=== PATIENT | male | born 1950 | race Caucasian/White ===

== ENCOUNTER 2019-07-11 20:05 | Observation (INO) ==
[2019-07-11] MEDS ORDERED: DILTIAZEM HCL 5 MG/ML VIAL IV ONE ×2 (20:14)
[2019-07-11] MEDS ORDERED: DILTIAZEM HCL 125 MG in DEXTROSE 5 % IN WATER 100 ML IV PRN ×2 (20:14)
[2019-07-11] MEDS ORDERED: NORMAL SALINE 1,000 ML IV ONE (20:21)
--- NOTE | 2019-07-11 20:26 | ERNOTE ---
Chest Pain/Cardiac HPI Chief Complaint: Chest Pain Time Seen by Provider: 07/11/19 20:13 Source: patient Exam Limitations: no limitations Allergies/Adverse Reactions: Allergies codeine Adverse Reaction (Verified 07/11/19 20:20) Home Medications: HOME MEDICATIONS Finasteride [Proscar] 5 mg PO DAILY 07/11/19 [Last Taken Unknown] Rosuvastatin Calcium 40 mg PO DAILY 07/11/19 [Last Taken Unknown] Tamsulosin HCl [Flomax] 0.4 mg PO HS 07/11/19 [Last Taken Unknown] metFORMIN HCL [Metformin HCl] 500 mg PO BID 07/11/19 [Last Taken Unknown] Allopurinol [Zyloprim] 300 mg PO DAILY 07/12/19 [Last Taken Unknown] Apixaban [Eliquis] 5 mg PO BID 07/12/19 [Last Taken Unknown] Fosinopril Sodium 20 mg PO DAILY 07/12/19 [Last Taken Unknown] Furosemide 20 mg PO DAILY 07/12/19 [Last Taken Unknown] Gabapentin [Neurontin] 100 mg PO TID 07/12/19 [Last Taken Unknown] Metoprolol Tartrate 50 mg PO BID 07/12/19 [Last Taken Unknown] Omeprazole 40 mg PO DAILY 07/12/19 [Last Taken Unknown] Potassium Chloride [Klor-Con M20] 20 meq PO DAILY 07/12/19 [Last Taken Unknown] Narrative: Pt presents with chest pain and palpitations. Had an episode earlier today that did not last but this episode lasted longer Timing: getting worse Severity/Quality: severe Location: central Review of Systems - Review of Systems Constitutional: Absent: recent illness, fever, chills Respiratory: Present: shortness of breath Cardiology: Present: chest pain. Absent: palpitations, syncope Gastrointestinal/Abdominal: Present: nausea. Absent: vomiting Genitourinary: Absent: dysuria Musculoskeletal: Absent: back pain, muscle pain Skin: Absent: rash Neurological: Absent: dizziness/light-headedness Endocrine: Absent: excessive sweating Medical History (Updated 07/12/19 @ 07:05 by Belkys Vee MD) Afib Bladder cancer Diabetes Enlarged prostate GERD (gastroesophageal reflux disease) HTN (hypertension) Surgical History: Surgical History (Updated 07/11/19 @ 20:22 by Massiel Ferguson) History of bladder surgery Hx of cholecystectomy Hx of hernia repair Family History: Family History (Updated 07/12/19 @ 00:40 by Anna Lopez RN) Sister Colon cancer Social History: (Last Reviewed 07/15/19 @ 02:43 by Santos Leggett DO) Social History: adopted: No fci: No Marital status: lives independently: Yes household members: spouse Tobacco: Smoking Status: Never smoker Alcohol: alcohol intake: never Substance Use: substance use type: does not use Physical Exam - Physical Exam General Appearance: Present: wd/wn, alert, mild distress Head Exam: Present: normal inspection, no evidence of injury Ears, Nose, Throat: Present: normal ENT inspection Neck: Present: normal inspection, nontender Respiratory: Present: no respiratory distress, no accessory muscle use, chest nontender, lungs clear Cardiovascular/Chest: Present: no murmur, tachycardia Gastrointestinal/Abdominal: Present: normal bowel sounds, nontender, nondistended, soft Back Exam: Present: normal inspection, normal range of motion Extremity Exam: Present: normal inspection, normal range of motion, no edema Neurological Exam: Present: alert, oriented, normal mood/affect, no motor/sensory deficits Skin Exam: Present: normal color, warm/dry Lymphatic Exam: Present: no adenopathy Progress - Results and Orders Patient's Lab Results:: I have reviewed the patient's lab results. Results and Orders: Laboratory Tests 07/11/19 07/11/19 07/11/19 20:26 20:26 20:26 WBC 9.2 Hgb 14.6 Hct 43.2 Plt Count 176 PT 11.0 H INR (Anticoag Therapy) 1.12 H PTT ([place]) 29.5 Sodium 138 Potassium 3.3 L Chloride 101 Carbon Dioxide 24.4 BUN 16 Creatinine 1.20 Random Glucose 288 H Calcium 9.3 Total Bilirubin 0.4 AST 29 ALT 20 Alkaline Phosphatase 54 Troponin I Less than 0.017 Total Protein 7.1 Albumin 4.1 Urine Color Urine Appearance Urine pH Ur Specific [place] Urine Protein Urine Glucose (UA) Urine Ketones Urine Blood Urine Nitrate Urine Bilirubin Prot Sulfosalicylic Acd Urine Urobilinogen Ur Leukocyte Esterase Urine RBC Urine WBC Ur Epithelial Cells Urine Bacteria Urine Culture Comments 07/11/19 22:41 WBC Hgb Hct Plt Count PT INR (Anticoag Therapy) PTT ([place]) Sodium Potassium Chloride Carbon Dioxide BUN Creatinine Random Glucose Calcium Total Bilirubin AST ALT Alkaline Phosphatase Troponin I Total Protein Albumin Urine Color Yellow Urine Appearance Clear Urine pH 6.5 Ur Specific [place] 1.020 Urine Protein 30 H Urine Glucose (UA) 500 H Urine Ketones 15 Urine Blood Negative Urine Nitrate Negative Urine Bilirubin Negative Prot Sulfosalicylic Acd Negative Urine Urobilinogen Normal Ur Leukocyte Esterase Negative Urine RBC None seen Urine WBC None seen Ur Epithelial Cells Trace Urine Bacteria Trace Urine Culture Comments No culture indicated - Vital Signs Patient's Vital Signs:: I have reviewed the patient's vital signs. - Progress/Reassessment Progress:: Improved Progress Note-Subjective: 07/11/19 20:20 Cardizem was ordered but HR slowed down to 89 spontaneously before medication could be given. 07/11/19 21:54 Patient had another episode of RVR which again stopped before any medication could be given. Patient was given 20 mg of Cardizem and started on a Cardizem drip at 5 mg/h and has maintained SR with PAC's around 80 bpm. 07/11/19 23:[address] Fountain she agrees with admission to the ICU with Cardizem drip and repeat troponins. Departure Clinical Impression: Atrial fibrillation with RVR - Departure Disposition: Still a patient Condition: Critical
[2019-07-11 20:30] LABS: Hematocrit 43.2 % (42.0-52.0); Hemoglobin 14.6 gm/dL (13.5-18.0); Mean Cell Volume 85.4 fl (78-100); Mean Corpuscular Hemoglobin 28.9 pg (27-31); Mean Corpuscular Hgb Conc 33.8 g/dl (32-36); Mean Platelet Volume 9.6 fl (8-11.3); Neutrophil # 4.2 K/mm3 (1.3-6.0); Platelet Count 176 K/mm3 (150-450); Red Blood Count 5.06 M/mm3 (4.7-6.0); Red Cell Distribution Width 13.2 % (11.5-14.0); White Blood Count 9.2 K/mm3 (4.0-10.5)
[2019-07-11 20:41] LABS: INR 1.12 INR (0.92-1.08); Partial Thrombolplastin Time 29.5 Seconds (24-32)
[2019-07-11 20:53] LABS: ALT 20 U/L (19-67); AST 29 U/L (0-48); Albumin * 4.1 gm/dl (3.4-5.0); Alkaline Phosphatase * 54 U/L (50-170); Anion Gap 15.9 mmol/L (6.8-13.8); BUN/Creatinine Ratio 13.3 (9.0-21.6); Bilirubin, Total 0.4 mg/dL (0.0-1.1); Blood Urea Nitrogen 16 mg/dL (6-23); Ca. Corrected For Albumin 8.9 mg/dL (8.4-10.2); Calcium * 9.3 mg/dL (7.9-10.9); Carbon Dioxide 24.4 mmol/L (24-32.6); Chloride 101 mmol/L (97-106); Glucose * 288 mg/dL (70-110); Potassium 3.3 mmol/L (3.4-4.6); Sodium 138 mmol/L (132-142); Total Protein 7.1 gm/dL (6.2-8.2); Troponin I Less than 0.017 ng/mL (0.00-0.10)
[2019-07-11 22:46] LABS: Urine Bilirubin Negative (NEGATIVE); Urine Blood Negative /ul (NEGATIVE); Urine Ketone 15 mg/dL (NEGATIVE); Urine Nitrite Negative (NEGATIVE); Urine Protein 30 mg/dL (NEGATIVE); Urine Urobilinogen Normal (NORMAL); Urine pH 6.5 pH (5.0-7.0)
[2019-07-11 22:57] LABS: Urine Appearance Clear (CLEAR); Urine Bacteria TRACE; Urine Color Yellow; Urine RBC None Seen /hpf (0-5); Urine WBC None Seen /hpf (0-5)
[2019-07-12] MEDS ORDERED: ASPIRIN 81 MG TAB.CHEW PO ONE ×2 (03:49→06:39)
[2019-07-12] MEDS ORDERED: ROSUVASTATIN CALCIUM 10 MG TABLET PO ONE (03:50)
[2019-07-12] MEDS ORDERED: MORPHINE SULFATE 4 MG/ML SYRG IV PRN (03:54)
[2019-07-12] MEDS ORDERED: ENOXAPARIN SODIUM 40 MG/0.4 ML SYRG SC ONE ×2 (03:55→06:00)
[2019-07-12] MEDS ORDERED: NITROGLYCERIN 0.4 MG/TAB BTL SL PRN (04:15)
--- NOTE | 2019-07-12 06:41 | HP ---
Chief Complaint - Chief Complaint Date of Service: 07/12/19 Time of Service: 05:00 Chief Complaint: chest pain History of Present Illness: 69-year-old male with past medical history of A. fib, hypertension, [id number] diabetes mellitus type 2, hyperlipidemia, gout, BPH, and past medical history of bladder cancer status post treatment, came to [facility] ER with complaints of intermittent chest pain radiating to back. Patient describes that he had 3 episodes of left-sided chest pain radiating to back that lasted for his 3 seconds and resolve spontaneously. Associated with dizziness and and feeling weak. Patient states after the third episode was concerned so they came to the ER for further evaluation. On arrival to the ER, patient via vital signs stable. Shortly after admission patient went to [place]. lawanda RVR. Labs and cardiac work-up completed. Opponents were less than 0.017. Labs were significant for hyperglycemia of 288, hypokalemia of 3.3, urine glucose of 500, and proteinuria of 30. Received Cardizem 30 mg IV push patient cardioverted however reverted back and RVR started on IV D drip and admitted into critical unit. Troponins were trended and at 3 AM next troponin was 0.983. EKG obtained no sick significant changes appreciated. Patient given aspirin 325 mg, Eliquis 5 mg, atorvastatin 80 mg. Morphine, nitro sublingual and oxygen ordered as needed. Patient was asymptomatic at 3 AM. Repeat troponin III hours later was significant for 1.960. EKG repeated, mild changes appreciated on EKG. EKG more consistent with an an STEMI. Consult Dr. Bone of [facility]. Discussed case with Dr. Merrill cardiology and accepted patient for transfer. Records were faxed to [facility] for further evaluation by the accepting hospitalist Dr. Head. Discussed case with hospitalist patient was accepted and transfer of patient was completed. Medical History (Updated 07/12/19 @ 07:05 by Belkys Vee MD) Afib Bladder cancer Diabetes Enlarged prostate GERD (gastroesophageal reflux disease) HTN (hypertension) Surgical History: Surgical History (Updated 07/11/19 @ 20:22 by Massiel Ferguson) History of bladder surgery Hx of cholecystectomy Hx of hernia repair Family History: Family History (Updated 07/12/19 @ 00:40 by nAna Lopez RN) Sister Colon cancer Social History: (Last Reviewed 07/15/19 @ 02:43 by Santos Leggett DO) Social History: adopted: No usp: No Marital status: lives independently: Yes household members: spouse Tobacco: Smoking Status: Never smoker Alcohol: alcohol intake: never Substance Use: substance use type: does not use Immunizations: IMMUNIZATION HX Immunizations Up to Date No Allergies/Adverse Reactions: Allergies Allergy/AdvReac Type Severity Reaction Status Date / Time codeine AdvReac Verified 07/11/19 20:20 Home Medications: HOME MEDICATIONS Finasteride [Proscar] 5 mg PO DAILY 07/11/19 [Last Taken Unknown] Rosuvastatin Calcium 40 mg PO DAILY 07/11/19 [Last Taken Unknown] Tamsulosin HCl [Flomax] 0.4 mg PO HS 07/11/19 [Last Taken Unknown] metFORMIN HCL [Metformin HCl] 500 mg PO BID 07/11/19 [Last Taken Unknown] Allopurinol [Zyloprim] 300 mg PO DAILY 07/12/19 [Last Taken Unknown] Apixaban [Eliquis] 5 mg PO BID 07/12/19 [Last Taken Unknown] Fosinopril Sodium 20 mg PO DAILY 07/12/19 [Last Taken Unknown] Furosemide 20 mg PO DAILY 07/12/19 [Last Taken Unknown] Gabapentin [Neurontin] 100 mg PO TID 07/12/19 [Last Taken Unknown] Metoprolol Tartrate 50 mg PO BID 07/12/19 [Last Taken Unknown] Omeprazole 40 mg PO DAILY 07/12/19 [Last Taken Unknown] Potassium Chloride [Klor-Con M20] 20 meq PO DAILY 07/12/19 [Last Taken Unknown] Exam - Exam Vital Signs: Vital Signs - Last Taken Temp 36.7 C 07/12/19 00:30 Pulse 68 07/12/19 05:00 Resp 16 07/12/19 05:00 BP 109/68 07/12/19 05:00 Pulse Ox 94 07/12/19 05:00 Diagnostic Studies: Abnormal Lab Results 07/11/19 07/11/19 07/11/19 Range/Units 20:26 20:26 20:26 Monocytes % 9.9 H (0.0-9) % Lymphocytes # 3.92 H (1.5-3.5) k/mm3 PT 11.0 H (9.1-10.7) Seconds INR (Anticoag Therapy) 1.12 H (0.92-1.08) INR Potassium 3.3 L (3.4-4.6) mmol/L Anion Gap 15.9 H (6.8-13.8) mmol/L Random Glucose 288 H (70-110) mg/dL Troponin I (0.00-0.10) ng/mL Urine Protein (NEGATIVE) mg/dL Urine Glucose (UA) (NEGATIVE) mg/dL 07/11/19 07/12/19 07/12/19 Range/Units 22:41 02:30 05:20 Monocytes % (0.0-9) % Lymphocytes # (1.5-3.5) k/mm3 PT (9.1-10.7) Seconds INR (Anticoag Therapy) (0.92-1.08) INR Potassium (3.4-4.6) mmol/L Anion Gap (6.8-13.8) mmol/L Random Glucose (70-110) mg/dL Troponin I 0.983 H* 1.960 H* (0.00-0.10) ng/mL Urine Protein 30 H (NEGATIVE) mg/dL Urine Glucose (UA) 500 H (NEGATIVE) mg/dL Laboratory Results WBC 9.2 K/mm3 (4.0-10.5) 07/11/19 20:26 RBC 5.06 M/mm3 (4.7-6.0) 07/11/19 20:26 Hgb 14.6 gm/dL (13.5-18.0) 07/11/19 20:26 Hct 43.2 % (42.0-52.0) 07/11/19 20:26 MCV 85.4 fl (78-100) 07/11/19 20:26 MCH 28.9 pg (27-31) 07/11/19 20:26 MCHC 33.8 g/dl (32-36) 07/11/19 20:26 RDW 13.2 % (11.5-14.0) 07/11/19 20:26 Plt Count 176 K/mm3 (150-450) 07/11/19 20:26 MPV 9.6 fl (8-11.3) 07/11/19 20:26 Immature Gran % (Auto) 0.20 % (0.001-0.429) 10/03/19 20:26 Immature Gran # (Auto) 0.02 K/mm3 (0.000-0.0310) 07/11/19 20:26 46.0 % (42-75.0) 07/11/19 20:26 42.7 % (20-51) 07/11/19 20:26 9.9 % (0.0-9) H 07/11/19 20:26 1.1 % (0.0-3.0) 07/11/19 20:26 0.1 % (0.0-1.0) 07/11/19 20: Nucleated RBC % 0.0 k/mm3 (0-1) 07/11/19 20:26 4.2 K/mm3 (1.3-6.0) 07/11/19 20:26 3.92 k/mm3 (1.5-3.5) H 07/11/19 20:26 0.9 k/mm3 (0.0-1.0) 07/11/19 20:26 0.1 k/mm3 (0.0-0.7) 07/11/19 20: Absolute Basophils 0.0 k/mm3 (0.0-0.1) 07/11/19 20:26 PT 11.0 Seconds (9.1-10.7) H 07/11/19 20:26 INR (Anticoag Therapy) 1.12 INR (0.92-1.08) H 07/11/19 20:26 PTT ([place]) 29.5 Seconds (24-32) 07/11/19 20:26 Sodium 138 mmol/L (132-142) 07/11/19 20:26 141 mmol/L (130-142) 07/11/19 20:26 Potassium 3.3 mmol/L (3.4-4.6) L 07/11/19 20:26 Chloride 101 mmol/L (97-106) 07/11/19 20:26 Carbon Dioxide 24.4 mmol/L (24-32.6) 07/11/19 20:26 15.9 mmol/L (6.8-13.8) H 07/11/19 20:26 BUN 16 mg/dL (6-23) 07/11/19 20:26 1.20 mg/dL (0.4-1.4) 07/11/19 20:26 Est GFR (Non-Af Amer) 64 mL/min (60-130) 07/11/19 20:26 13.3 (9.0-21.6) 07/11/19 20:26 288 mg/dL (70-110) H 07/11/19 20:26 Calcium 9.3 mg/dL (7.9-10.9) 07/11/19 20:26 Calcium Adj for Albumin 8.9 mg/dL (8.4-10.2) 07/11/19 20:26 0.4 mg/dL (0.0-1.1) 07/11/19 20:26 AST 29 U/L (0-48) 07/11/19 20:26 ALT 20 U/L (19-67) 07/11/19 20:26 54 U/L (50-170) 07/11/19 20:26 1.960 ng/mL (0.00-0.10) H* 07/12/19 05:20 7.1 gm/dL (6.2-8.2) 07/11/19 20:26 4.1 gm/dl (3.4-5.0) 07/11/19 20:26 Yellow 07/11/19 22:41 Clear (CLEAR) 07/11/19 22:41 6.5 pH (5.0-7.0) 07/11/19 22:41 Ur Specific [place] 1.020 SP.GR. (1.005-1.030) 07/11/19 22:41 30 mg/dL (NEGATIVE) H 07/11/19 22:41 500 mg/dL (NEGATIVE) H 07/11/19 22:41 15 mg/dL (NEGATIVE) 07/11/19 22:41 Negative /ul (NEGATIVE) 07/11/19 22:41 Negative (NEGATIVE) 07/11/19 22:41 Negative mg/dl (NEGATIVE) 07/11/19 22:41 Prot Sulfosalicylic Acd Negative mg/dL (0) 07/11/19 22:41 Normal EU/dl (NORMAL) 07/11/19 22:41 Ur Leukocyte Esterase Negative /ul (NEGATIVE) 07/11/19 22:41 None seen /hpf (0-5) 07/11/19 22:41 None seen /hpf (0-5) 07/11/19 22:41 Ur Epithelial Cells Trace /hpf (0-5) 07/11/19 22:41 Trace (NONE) 07/11/19 22:41 No culture indicated 07/11/19 22:41 Assessment/Plan - Narrative Narrative: 1. N-STEMI -EKGs obtained showed ST depression in precordial leads, repeat EKG had showed no acute changes -Troponins trended, initially less than 0.017, trended upwards to 0.9 then to greater than 1.9. -Aspirin 325 mg p.o. x1 -Eliquis 5 mill -Atorvastatin 80 mg p.o. times -Morphine, nitroglycerin sublingual and oxygen as needed. Patient remained asymptomatic did not need either of these medications. -Dr. Merrill of [facility] ([employer] supervisor), accepted patient for transfer -Dr. Head accepting hospitalist, case discussed -Transferred for higher level of care. 2. A-fib RVR -Received Cardizem 30 mg IV push -Started on Cardizem drip -Now well controlled on drip, new whilst en route to [facility] 3. Hyperglycemia in the setting of [id number] diabetes mellitus type 2 4. Hypokalemia 5. Glucosuria 6. Hypertension 7. Hyperlipidemia 8. BPH 9. Gout 10. History of prostate cancer status post treatment still followed by urology. Had a scope every [address] RAMSEY. Fluid electrolyte nutrition: Heart healthy diet DVT prophylaxis: Continue Eliquis 5 mg p.o. twice daily Activity: Up ad benjamín. CODE STATUS: Full code Disposition: Transferred to [facility] due to NSTEMI. - Assessment/Plan (1) Diabetes 1.5, managed as type 2 Problem: Acute (2) Hyperlipidemia Problem: Acute (3) Hypertension Problem: Acute (4) BPH (benign prostatic hyperplasia) Problem: Acute (5) History of prostate cancer Problem: Acute
[2019-07-12] MEDS ORDERED: MORPHINE SULFATE 2 MG/ML DISP.SYRIN IV PRN (06:51)
--- NOTE | 2019-07-12 07:03 | DS ---
Transfer Discharge Summary - Diagnosis(s)/Problems (1) NSTEMI (non-ST elevated myocardial infarction) Problem: Acute (2) Atrial fibrillation with RVR Problem: Acute - Course Description of Stay: 69-year-old male with past medical history of A. lawanda, hypertension, [id number] diabetes mellitus type 2, hyperlipidemia, gout, BPH, and past medical history of bladder cancer status post treatment, came to [facility] ER with complaints of intermittent chest pain radiating to back. Patient describes that he had 3 episodes of left-sided chest pain radiating to back that lasted for his 3 seconds and resolve spontaneously. Associated with dizziness and and feeling weak. Patient states after the third episode was concerned so they came to the ER for further evaluation. On arrival to the ER, patient via vital signs stable. Shortly after admission patient went to lawanda RVR. Labs and cardiac work-up completed. Opponents were less than 0.017. Labs were significant for hyperglycemia of 288, hypokalemia of 3.3, urine glucose of 500, and proteinuria of 30. Received Cardizem 30 mg IV push patient cardioverted however reverted back and RVR started on IV D drip and admitted into critical unit. Troponins were trended and at 3 AM next troponin was 0.983. EKG obtained no sick significant changes appreciated. Patient given aspirin 325 mg, Eliquis 5 mg, atorvastatin 80 mg. Morphine, nitro sublingual and oxygen ordered as needed. Patient was asymptomatic at 3 AM. Repeat troponin III hours later was significant for 1.960. EKG repeated, mild changes appreciated on EKG. EKG more consistent with an an STEMI. Consult Dr. Bone of [facility]. Discussed case with Dr. Merrill cardiology and accepted patient for transfer. Records were faxed to [facility] for further evaluation by the accepting hospitalist Dr. Head. Discussed case with hospitalist patient was accepted and transfer of patient was completed. Consultation Done:: Cardiology: Dr. Merrill Procedures Performed: none - Results and Findings Results and Findings: Laboratory Results - last 24 hr 07/11/19 07/11/19 07/11/19 20:26 20:26 20:26 WBC 9.2 RBC 5.06 Hgb 14.6 Hct 43.2 MCV 85.4 MCH 28.9 MCHC 33.8 RDW 13.2 Plt Count 176 MPV 9.6 Immature Gran % (Auto) 0.20 Immature Gran # (Auto) 0.02 Neutrophils % 46.0 Lymphocytes % 42.7 Monocytes % 9.9 H Eosinophils % 1.1 Basophils % 0.1 Nucleated RBC % 0.0 Neutrophils # 4.2 Lymphocytes # 3.92 H Monocytes # 0.9 Eosinophils # 0.1 Absolute Basophils 0.0 PT 11.0 H INR (Anticoag Therapy) 1.12 H PTT ([place]) 29.5 Sodium 138 Plasma Sodium 141 Potassium 3.3 L Chloride 101 Carbon Dioxide 24.4 Anion Gap 15.9 H BUN 16 Creatinine 1.20 Est GFR (Non-Af Amer) 64 BUN/Creatinine Ratio 13.3 Random Glucose 288 H Calcium 9.3 Calcium Adj for Albumin 8.9 Total Bilirubin 0.4 AST 29 ALT 20 Alkaline Phosphatase 54 Troponin I Less than 0.017 Total Protein 7.1 Albumin 4.1 Urine Color Urine Appearance Urine pH Ur Specific [place] Urine Protein Urine Glucose (UA) Urine Ketones Urine Blood Urine Nitrate Urine Bilirubin Prot Sulfosalicylic Acd Urine Urobilinogen Ur Leukocyte Esterase Urine RBC Urine WBC Ur Epithelial Cells Urine Bacteria Urine Culture Comments 07/11/19 07/12/19 07/12/19 22:41 02:30 05:20 WBC RBC Hgb Hct MCV MCH MCHC RDW Plt Count MPV Immature Gran % (Auto) Immature Gran # (Auto) Neutrophils % Lymphocytes % Monocytes % Eosinophils % Basophils % Nucleated RBC % Neutrophils # Lymphocytes # Monocytes # Eosinophils # Absolute Basophils PT INR (Anticoag Therapy) PTT ([place]) Sodium Plasma Sodium Potassium Chloride Carbon Dioxide Anion Gap BUN Creatinine Est GFR (Non-Af Amer) BUN/Creatinine Ratio Random Glucose Calcium Calcium Adj for Albumin Total Bilirubin AST ALT Alkaline Phosphatase Troponin I 0.983 H* 1.960 H* Total Protein Albumin Urine Color Yellow Urine Appearance Clear Urine pH 6.5 Ur Specific [place] 1.020 Urine Protein 30 H Urine Glucose (UA) 500 H Urine Ketones 15 Urine Blood Negative Urine Nitrate Negative Urine Bilirubin Negative Prot Sulfosalicylic Acd Negative Urine Urobilinogen Normal Ur Leukocyte Esterase Negative Urine RBC None seen Urine WBC None seen Ur Epithelial Cells Trace Urine Bacteria Trace Urine Culture Comments No culture indicated - Medications Medications: Active Medications Diltiazem HCl 125 mg/ Dextrose (/Water) 125 mls @ 0 mls/hr IV TITR PRN; Protocol PRN Reason: Arrhythmia Stop: 08/10/19 20:15 Last Admin: 07/11/19 21:30 Dose: 5 ml/hr, 5 mls/hr Documented by: Discontinued Medications Aspirin (Aspirin Chewable) 81 mg PO ONCE ONE Stop: 07/12/19 03:50 Last Admin: 07/12/19 04:20 Dose: 81 mg Documented by: Diltiazem HCl (Cardizem) 30 mg IV ONCE ONE Stop: 07/11/19 20:15 Last Admin: 07/11/19 21:12 Dose: 20 mg Documented by: Enoxaparin Sodium (Lovenox) 40 mg SC ONCE ONE Stop: 07/12/19 03:56 Last Admin: 07/12/19 04:17 Dose: Not Given Documented by: Sodium Chloride (Sodium Chloride 0.9%) 1,000 mls @ 999 mls/hr IV .Q1H1M ONE Stop: 07/11/19 21:21 Last Infusion: 07/11/19 21:34 Dose: Infused Documented by: Rosuvastatin Calcium (Crestor) 20 mg PO ONCE ONE Stop: 07/12/19 03:51 Last Admin: 07/12/19 04:20 Dose: 20 mg Documented by: - Disposition Disposition: Short Term Hospital Inpatient Condition: Critical Discharge Date: 07/12/19 Discharge Time: 07:00
[2019-07-12 07:45] VITALS: BP 123/76
[2019-07-12] MEDS ORDERED: APIXABAN 5 MG TABLET PO SCH (09:00)
== END 2019-07-12 07:30 | disposition short-term general hospital (02) ==
LOC: SCU 20:05 → ER 20:05 → SCU 07-12 00:05
PROVIDERS: ADMIT Family Medicine; ATTEND Family Medicine
CPT/HCPCS: 36415; 71010; 71045; 80053; 81001; 84484; 85025; 85610; 85730; 93005; 96374; 99285